=== PATIENT | male | born 2000 | race Caucasian/White ===

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

== ENCOUNTER 2021-11-16 10:11 | Emergency (ER) | payer OTHER ==
[~2021-11-16] VITALS: Ht 170.2 cm; Wt 76.2 kg
== END 2021-11-16 13:05 | disposition home or self-care (01) ==
LOC: ED 10:11
DX: J06.9 Acute upper respiratory infection, unspecified (principal); Z20.822 Contact with and (suspected) exposure to COVID-19
CPT/HCPCS: 99283; U0003

== ENCOUNTER 2022-03-27 00:04 | Emergency (ER) | payer OTHER ==
[~2022-03-27] VITALS: Ht 170.2 cm; Wt 77.1 kg
[2022-03-27] MEDS ORDERED: MOBIC15 MG PO (00:43)
[2022-03-27] MEDS ORDERED: CYCLOBENZAPRINE5 MG PO (00:43)
== END 2022-03-27 00:55 | disposition home or self-care (01) ==
LOC: ED 00:04
DX: S83.92XA Sprain of unspecified site of left knee, initial encounter (principal); W50.0XXA Accidental hit or strike by another person, initial encounter
CPT/HCPCS: 73560; 96372; 99283-25; J1885

== ENCOUNTER 2022-09-27 01:15 | Emergency (ER) | payer OTHER ==
[~2022-09-27] VITALS: Ht 170.2 cm; Wt 82.7 kg
[~2022-09-27 01:15] MED LIST changes: +CYCLOBENZAPRINE5 MG PO; +IBU600 MG PO; +MOBIC15 MG PO; +TYLENOL EXTRA500 MG PO
== END 2022-09-27 01:49 | disposition home or self-care (01) ==
LOC: ED 01:15
DX: J06.9 Acute upper respiratory infection, unspecified (principal)
CPT/HCPCS: 99283

== ENCOUNTER 2023-02-19 22:28 | Emergency (ER) | payer OTHER ==
[~2023-02-19] VITALS: Ht 170.2 cm; Wt 81.7 kg
== END 2023-02-19 23:18 | disposition home or self-care (01) ==
LOC: ED 22:28
DX: J06.9 Acute upper respiratory infection, unspecified (principal)
CPT/HCPCS: 87502; 99283; U0003

== ENCOUNTER 2024-12-16 21:48 | Emergency (ER) | payer OTHER ==
[~2024-12-16] VITALS: Ht 170.2 cm; Wt 91.2 kg
[2024-12-16 22:22] LABS: CORONAVIRUS COVID-19 AG NEGATIVE (NEGATIVE); INFLUENZA A AG NEGATIVE (NEGATIVE); INFLUENZA B AG NEGATIVE (NEGATIVE)
[2024-12-16] MEDS ORDERED: METHYLPREDNISOLO4 M1 PO (22:42)
[2024-12-16] MEDS ORDERED: INHALER, ASSIST DEVICES 1 EACH SPACER MISC ONE (22:45)
[2024-12-16] MEDS ORDERED: ALBUTEROL SULFATE 8 GM HOME.PACK INH ONE (22:45)
[2024-12-16] MEDS ORDERED: predniSONE 20 MG TAB PO ONE (22:45)
[2024-12-16 22:56] VITALS: BP 130/82
== END 2024-12-16 22:56 | disposition home or self-care (01) ==
LOC: ED 21:48
PROVIDERS: Internal Medicine
DX: J20.8 Acute bronchitis due to other specified organisms (principal)
CPT/HCPCS: 36415; 71045; 94640; 94664; 99284-25; J7512

== ENCOUNTER 2025-08-02 13:38 | Emergency (ER) | payer OTHER ==
[~2025-08-02] VITALS: Ht 170.2 cm; Wt 89.6 kg
[~2025-08-02 13:38] MED LIST changes: +LEVOTHYROXINE50 MCG PO; +METHYLPREDNISOLO4 M1 PO
[2025-08-02] MEDS ORDERED: SODIUM CHLORIDE 0.9% 1,000 ML IV PRN (14:45)
[2025-08-02] MEDS ORDERED: METOCLOPRAMIDE HCL 10 MG/2 ML SDV IV ONE (14:45)
[2025-08-02] MEDS ORDERED: KETOROLAC TROMETHAMINE 15 MG/ML VIAL IV ONE (14:45)
[2025-08-02 16:20] VITALS: BP 104/64
== END 2025-08-02 16:21 | disposition home or self-care (01) ==
LOC: ED 13:38
DX: R51.9 Headache, unspecified (principal); Z79.890 Hormone replacement therapy
CPT/HCPCS: 96374; 96375; 99283-25; J1200; J1885; J2765; J7030